=== PATIENT | female | born 1955 | race African-American/Black ===

== ENCOUNTER 2020-05-04 01:21 | Inpatient (IN) | payer OTHER ==
[2020-05-04 01:42] VITALS: BMI 41.8
[2020-05-04] MEDS ORDERED: ASPIRIN 81 MG CHEWABLE TABLETS PO ONE (02:57)
[2020-05-04] MEDS ORDERED: ASPIRIN 81 MG CHEWABLE TABLETS ONE ×2 (02:59→10:33)
[2020-05-04 03:20] LABS: BASO % 0.9 % (0-2.0); EOS % 4.3 % (0-4.5); HEMATOCRIT 25.1 % (32.4-45.2); LYMPH % 43.3 % (8-40); MCH 24.3 pg (25.7-33.7); MCHC 31.8 g/dl (32.0-36.0); MEAN CELL VOLUME 76.3 fl (80-96); MEAN PLT VOLUME 7.8 fl (7.5-11.1); MONO % 9.2 % (3.8-10.2); NEUT % 42.3 % (42.8-82.8); PLATELET COUNT 205 K/MM3 (134-434); RBC 3.28 M/mm3 (3.60-5.2); RDW 18.7 % (11.6-15.6); WHITE BLOOD COUNT 3.7 K/mm3 (4.0-10.0)
[2020-05-04 03:40] LABS: CHLORIDE 107 mmol/L (98-107); POTASSIUM 4.3 mmol/L (3.5-5.1); SODIUM 139 mmol/L (136-145)
[2020-05-04 03:42] LABS: CALCIUM 8.4 mg/dL (8.5-10.1)
[2020-05-04 03:43] LABS: ANION GAP 3 MMOL/L (8-16); CO2 29 mmol/L (21-32); GLUCOSE,RANDOM 85 mg/dL (74-106); LIPASE 98 U/L (73-393)
[2020-05-04 03:46] LABS: CREATININE 0.6 mg/dL (0.55-1.3); SGOT/AST 17 U/L (15-37); SGPT/ALT 19 U/L (13-61)
[2020-05-04 03:47] LABS: BILIRUBIN,TOTAL 0.2 mg/dL (0.2-1); TOT PROT 6.3 g/dl (6.4-8.2)
[2020-05-04 03:48] LABS: ALK PHOS 85 U/L (45-117)
[2020-05-04 03:51] LABS: N-TERMINAL BNP 118.2 pg/ml (5-125)
[2020-05-04] MEDS ORDERED: FUROSEMIDE 40 MG/4 ML INJECTABLE VIAL IVPUSH ONE ×2 (04:28→04:31)
[2020-05-04] MEDS ORDERED: NITROGLYCERIN SUBLINGUAL 1/150 0.4 MG TAB SL ONE (04:59)
[2020-05-04] MEDS ORDERED: NITROGLYCERIN SUBLINGUAL 1/150 0.4 MG TAB ONE (05:08)
[2020-05-04] MEDS ORDERED: ACETAMINOPHEN 1000 MG/100 ML VIAL (NON FORMULARY) IVPB ONE (05:27)
[2020-05-04] MEDS ORDERED: FUROSEMIDE 40 MG/4 ML INJECTABLE VIAL IVPUSH STA (05:41)
[2020-05-04] MEDS ORDERED: ACETAMINOPHEN INJECTION 100 ML IVPB ONE (05:55)
[2020-05-04] MEDS ORDERED: NITROGLYCERIN SUBLINGUAL 1/150 0.4 MG TAB SL PRN (06:01)
[2020-05-04] MEDS ORDERED: ACETAMINOPHEN 325 MG TABLET (FP) PO PRN (06:18)
[2020-05-04] MEDS ORDERED: FUROSEMIDE 40 MG/4 ML INJECTABLE VIAL ONE ×2 (06:42→15:09)
[2020-05-04 07:15] LABS: CHLORIDE 107 mmol/L (98-107); POTASSIUM 4.8 mmol/L (3.5-5.1); SODIUM 140 mmol/L (136-145)
[2020-05-04 07:18] LABS: ALBUMIN 2.9 g/dl (3.4-5.0); ANION GAP 6 MMOL/L (8-16); BLOOD UREA NITROGEN 10.5 mg/dL (7-18); CALCIUM 8.3 mg/dL (8.5-10.1); CO2 27 mmol/L (21-32); GLUCOSE,RANDOM 79 mg/dL (74-106)
[2020-05-04 07:22] LABS: CHOLESTEROL 209 mg/dL (50-200); CREATININE 0.5 mg/dL (0.55-1.3); IRON SERUM 23 ug/dL (50-175); PHOSPHOROUS 4.1 mg/dL (2.5-4.9); SGOT/AST 26 U/L (15-37); SGPT/ALT 21 U/L (13-61)
[2020-05-04 07:23] LABS: BILIRUBIN,TOTAL 0.3 mg/dL (0.2-1); LDL CHOLESTEROL (ONLY SJRH) 117 mg/dL (5-100); TOT PROT 5.9 g/dl (6.4-8.2); TOTAL IRON BINDING CAPACITY 460 ug/dL (250-450); TRIGLYCERIDES 67 mg/dL (0-150)
[2020-05-04 07:24] LABS: ALK PHOS 79 U/L (45-117); HDL CHOLESTEROL 75 mg/dL (40-60)
[2020-05-04] MEDS ORDERED: LIDOCAINE 5% TOPICAL PATCH TP SCH (10:00)
[2020-05-04] MEDS ORDERED: ENOXAPARIN NA (PORCINE) 40 MG/0.4 ML DISP.SYRIN SQ SCH (10:00)
[2020-05-04] MEDS ORDERED: ASPIRIN 81 MG CHEWABLE TABLETS PO SCH (10:00)
[2020-05-04 10:08] LABS: BASO % 1.2 % (0-2.0); EOS % 4.8 % (0-4.5); HEMATOCRIT 26.1 % (32.4-45.2); HEMOGLOBIN 8.3 GM/dL (10.7-15.3); LYMPH % 42.6 % (8-40); MCH 24.3 pg (25.7-33.7); MCHC 31.7 g/dl (32.0-36.0); MEAN CELL VOLUME 76.7 fl (80-96); MEAN PLT VOLUME 7.5 fl (7.5-11.1); MONO % 12.3 % (3.8-10.2); NEUT % 39.1 % (42.8-82.8); PLATELET COUNT 219 K/MM3 (134-434); WHITE BLOOD COUNT 2.8 K/mm3 (4.0-10.0)
[2020-05-04] MEDS ORDERED: ENOXAPARIN NA (PORCINE) 40 MG/0.4 ML DISP.SYRIN SQ ONE (10:33)
[2020-05-04] MEDS ORDERED: FUROSEMIDE 40 MG/4 ML INJECTABLE VIAL IVPUSH SCH (14:00)
[2020-05-04 15:33] VITALS: BP 137/93; PULSE 72; TEMP 97.8
[2020-05-04] MEDS ORDERED: LIDOCAINE PATCH REMOVAL MC SCH (22:00)
[2020-05-04] MEDS ORDERED: ATORVASTATIN CA 40 MG TABLET (FP) PO SCH (22:00)
== END 2020-05-04 19:42 | disposition left against medical advice (07) | DRG 313 ==
LOC: JER 01:21 → JERBED 03:55
PROVIDERS: ADMIT Hospitalist; ATTEND Internal Medicine
DX: R07.89 Other chest pain (principal); E78.5 Hyperlipidemia, unspecified; R60.0 Localized edema; D50.9 Iron deficiency anemia, unspecified; D72.819 Decreased white blood cell count, unspecified; E88.09 Other disorders of plasma-protein metabolism, not elsewhere classified; F17.210 Nicotine dependence, cigarettes, uncomplicated; R06.02 Shortness of breath; D64.9 Anemia, unspecified; E87.70 Fluid overload, unspecified
CPT/HCPCS: 36415; 71045-TC-FY; 80053; 80061; 82550; 82607; 83036; 83540; 83550; 83690; 83721; 83735; 83880; 84100; 84443; 84484; 85025; 85379; 86900; 86922; 93005; 93010; 93306-TC; 93970-TC; 99285-25; C9803; J0131; U0003

== ENCOUNTER 2020-05-05 00:57 | Inpatient (IN) | payer OTHER ==
[2020-05-05 01:43] VITALS: BMI 27.8
[2020-05-05 02:52] LABS: BASO % 0.7 % (0-2.0); EOS % 3.7 % (0-4.5); HEMOGLOBIN 7.8 GM/dL (10.7-15.3); LYMPH % 41.4 % (8-40); MCH 23.8 pg (25.7-33.7); MCHC 31.1 g/dl (32.0-36.0); MEAN CELL VOLUME 76.6 fl (80-96); MONO % 10.1 % (3.8-10.2); NEUT % 44.1 % (42.8-82.8); PLATELET COUNT 200 K/MM3 (134-434); RBC 3.26 M/mm3 (3.60-5.2); RDW 18.7 % (11.6-15.6); WHITE BLOOD COUNT 3.6 K/mm3 (4.0-10.0)
[2020-05-05 03:08] LABS: CHLORIDE 107 mmol/L (98-107); POTASSIUM 3.6 mmol/L (3.5-5.1); SODIUM 142 mmol/L (136-145)
[2020-05-05 03:10] LABS: CALCIUM 8.5 mg/dL (8.5-10.1)
[2020-05-05 03:11] LABS: ANION GAP 7 MMOL/L (8-16); CO2 28 mmol/L (21-32); GLUCOSE,RANDOM 101 mg/dL (74-106)
[2020-05-05 03:14] LABS: CREATININE 0.7 mg/dL (0.55-1.3); SGOT/AST 12 U/L (15-37); SGPT/ALT 19 U/L (13-61)
[2020-05-05 03:16] LABS: BILIRUBIN,TOTAL 0.3 mg/dL (0.2-1); TOT PROT 6.1 g/dl (6.4-8.2)
[2020-05-05 03:17] LABS: ALK PHOS 81 U/L (45-117)
[2020-05-05] MEDS ORDERED: ACETAMINOPHEN 325 MG TABLET (FP) PO PRN (06:18)
[2020-05-05] MEDS ORDERED: NITROGLYCERIN SUBLINGUAL 1/150 0.4 MG TAB SL PRN (06:18)
[2020-05-05 07:25] VITALS: BP 134/43; PULSE 79; TEMP 97.5
[2020-05-05] MEDS ORDERED: IRON SUCROSE INJECTION 100 MG in SODIUM CHLORIDE 95 ML IVPB ONE (08:00)
[2020-05-05] MEDS ORDERED: NICOTINE 14 MG/24 HOURS TOPICAL PATCH TD SCH (10:00)
[2020-05-05] MEDS ORDERED: ASPIRIN 81 MG CHEWABLE TABLETS PO SCH (10:00)
[2020-05-05] MEDS ORDERED: ENOXAPARIN NA (PORCINE) 40 MG/0.4 ML DISP.SYRIN SQ SCH (10:00)
[2020-05-05] MEDS ORDERED: ASPIRIN 81 MG CHEWABLE TABLETS ONE (10:52)
[2020-05-05] MEDS ORDERED: ENOXAPARIN NA (PORCINE) 40 MG/0.4 ML DISP.SYRIN SQ ONE (10:52)
[2020-05-05] MEDS ORDERED: FUROSEMIDE 40 MG/4 ML INJECTABLE VIAL IVPUSH SCH (14:00)
[2020-05-05] MEDS ORDERED: ATORVASTATIN CA 80 MG TABLET (FP) PO SCH (22:00)
== END 2020-05-05 16:33 | disposition left against medical advice (07) | DRG 812 ==
LOC: JER 00:57 → JERBED 03:26 → OBSVTOIN 06:04
PROVIDERS: ADMIT Internal Medicine; ATTEND Internal Medicine
DX: D50.9 Iron deficiency anemia, unspecified (principal); R07.89 Other chest pain; I10 Essential (primary) hypertension; E78.5 Hyperlipidemia, unspecified; D72.819 Decreased white blood cell count, unspecified; E88.09 Other disorders of plasma-protein metabolism, not elsewhere classified; F17.210 Nicotine dependence, cigarettes, uncomplicated; E87.70 Fluid overload, unspecified
CPT/HCPCS: 36415; 71045-TC-FY; 80053; 82550; 84484; 85025; 93005; 93010; 99285-25; G0378

== ENCOUNTER 2021-01-24 21:12 | Observation (INO) | payer OTHER ==
[2021-01-24 21:31] VITALS: BMI 45.4
[2021-01-24 23:06] LABS: VENOUS BASE EXCESS -1.9 mmol/L (-2-2); VENOUS O2 SATURATION 79.9 % (70-80); VENOUS PCO2 43.6 mmHg (38-52); VENOUS PH 7.351 (7.310-7.410)
[2021-01-24 23:09] LABS: BASO % 0.7 % (0-2.0); EOS % 2.9 % (0-4.5); HEMATOCRIT 23.4 % (32.4-45.2); HEMOGLOBIN 7.4 GM/dL (10.7-15.3); LYMPH % 36.5 % (8-40); MCH 22.8 pg (25.7-33.7); MCHC 31.6 g/dl (32.0-36.0); MEAN CELL VOLUME 72.3 fl (80-96); MEAN PLT VOLUME 7.3 fl (7.5-11.1); MONO % 9.1 % (3.8-10.2); NEUT % 50.8 % (42.8-82.8); PLATELET COUNT 215 10^3/uL (134-434); RBC 3.23 M/mm3 (3.60-5.2); WHITE BLOOD COUNT 4.6 K/mm3 (4.0-10.0)
[2021-01-24 23:15] LABS: INR 0.89 (0.83-1.09); PROTHROMBIN TIME (PATIENT) 10.9 SEC (9.7-13.0)
[2021-01-24 23:17] LABS: ACTIVATED PTT 26.6 SECONDS (25.2-36.5)
[2021-01-24 23:29] LABS: CALCIUM 8.2 mg/dL (8.5-10.1)
[2021-01-24 23:30] LABS: ALBUMIN 2.9 g/dl (3.4-5.0); BLOOD UREA NITROGEN 23.8 mg/dL (7-18); MAGNESIUM 2.1 mg/dL (1.8-2.4)
[2021-01-24 23:33] LABS: CREATININE 0.7 mg/dL (0.55-1.3)
[2021-01-24 23:34] LABS: BILIRUBIN,TOTAL 0.2 mg/dL (0.2-1); TOT PROT 6.2 g/dl (6.4-8.2)
[2021-01-24 23:38] LABS: N-TERMINAL BNP 94.5 pg/ml (5-125)
[2021-01-25] MEDS ORDERED: ASPIRIN 81 MG CHEWABLE TABLETS PO ONE (00:45)
[2021-01-25] MEDS ORDERED: ASPIRIN 81 MG CHEWABLE TABLETS ONE ×2 (00:51→07:35)
[2021-01-25 01:00] VITALS: TEMP 98.6
[2021-01-25] MEDS ORDERED: FUROSEMIDE 40 MG/4 ML INJECTABLE VIAL IVPUSH ONE (01:31)
[2021-01-25] MEDS ORDERED: ACETAMINOPHEN 325 MG TABLET (FP) PO PRN (03:44)
[2021-01-25 05:43] VITALS: BP 161/72; PULSE 85
[2021-01-25 07:31] LABS: BLOOD UREA NITROGEN 19.2 mg/dL (7-18); CALCIUM 8.1 mg/dL (8.5-10.1)
[2021-01-25 07:33] LABS: CHOLESTEROL 180 mg/dL (50-200)
[2021-01-25 07:34] LABS: ALBUMIN 2.8 g/dl (3.4-5.0)
[2021-01-25 07:35] LABS: LDL CHOLESTEROL (ONLY SJRH) 98 mg/dL (5-100)
[2021-01-25] MEDS ORDERED: ENOXAPARIN NA (PORCINE) 40 MG/0.4 ML DISP.SYRIN SQ ONE (07:35)
[2021-01-25] MEDS ORDERED: FUROSEMIDE 40 MG TABLET (FP) ONE (07:35)
[2021-01-25 07:36] LABS: BILIRUBIN,TOTAL 0.4 mg/dL (0.2-1); HDL CHOLESTEROL 71 mg/dL (40-60); HEMATOCRIT 22.5 % (32.4-45.2); HEMOGLOBIN 7.1 GM/dL (10.7-15.3); MCH 23.2 pg (25.7-33.7); MCHC 31.8 g/dl (32.0-36.0); MEAN CELL VOLUME 73.1 fl (80-96); PLATELET COUNT 205 10^3/uL (134-434); RBC 3.07 M/mm3 (3.60-5.2); RDW 18.9 % (11.6-15.6); TOT PROT 5.9 g/dl (6.4-8.2); WHITE BLOOD COUNT 3.5 K/mm3 (4.0-10.0)
[2021-01-25 07:37] LABS: CREATININE 0.6 mg/dL (0.55-1.3); PHOSPHOROUS 3.8 mg/dL (2.5-4.9); TRIGLYCERIDES 55 mg/dL (0-150)
[2021-01-25 08:10] LABS: PH,URINE 5.5 (5.0-8.0); URINE APPEARANCE CLEAR; URINE BILIRUBIN NEGATIVE (NEGATIVE); URINE COLOR YELLOW; URINE GLUCOSE (UA) NEGATIVE (NEGATIVE); URINE KETONE NEGATIVE (NEGATIVE); URINE LEUK ESTERASE NEGATIVE (NEGATIVE); URINE NITRITE NEGATIVE (NEGATIVE); URINE PROTEIN NEGATIVE (NEGATIVE)
[2021-01-25] MEDS ORDERED: ENOXAPARIN NA (PORCINE) 40 MG/0.4 ML DISP.SYRIN SQ SCH (10:00)
[2021-01-25] MEDS ORDERED: ASPIRIN 81 MG CHEWABLE TABLETS PO SCH (10:00)
[2021-01-25] MEDS ORDERED: FUROSEMIDE 40 MG TABLET (FP) PO SCH (10:00)
[2021-01-25] MEDS ORDERED: NICOTINE 7 MG/24 HOURS TOPICAL PATCH TD SCH (10:00)
[2021-01-25] MEDS ORDERED: ATORVASTATIN CA 40 MG TABLET (FP) PO SCH (22:00)
== END 2021-01-25 09:20 | disposition left against medical advice (07) ==
LOC: JER 21:12 → JERBED 01-25 01:33 → UNDOADMOB 01-25 01:33 → INTOOBSV 01-25 01:33 → JERBED 01-25 03:44 → UNDODISOB 01-25 09:20
PROVIDERS: ADMIT Internal Medicine; ATTEND Internal Medicine
DX: R07.9 Chest pain, unspecified (principal); R26.2 Difficulty in walking, not elsewhere classified; E66.01 Morbid (severe) obesity due to excess calories; Z68.42 Body mass index [BMI] 45.0-49.9, adult; Z91.041 Radiographic dye allergy status
CPT/HCPCS: 36415; 71045-TC-FY; 80053; 80061; 81003; 82550; 82570; 82803; 83036; 83735; 83880; 84100; 84155; 84156; 84165; 84443; 84484; 85025; 85027; 85045; 85610; 85730; 87086; 93005; 93010; 93970-TC; 99285-25; C9803; G0378; U0003; U0005